=== PATIENT | female | born 2000 | race Caucasian/White ===

== ENCOUNTER 2019-09-30 18:48 | Emergency (ER) | payer MEDICAID ==
--- NOTE | 2019-09-30 22:04 | EDM.PDOC ---
ED HPI GENERAL MEDICAL PROBLEM - General Chief Complaint: HYDROSTATIC TESTER Problem Stated Complaint: 9 WEEKS AND HEAVY BLEEDING Time Seen by Provider: 09/30/19 19:40 Source of Information: Reports: Patient History Limitations: Reports: No Limitations - History of Present Illness INITIAL COMMENTS - FREE TEXT/NARRATIVE: 9 weeks , has been bleeding for about one week bleeding initilaly was light now has heavy bleeding Onset: Gradual Onset Date: 09/27/19 Duration: Getting Worse Quality: Reports: Ache, Dull Severity: Moderate Improves with: Reports: None Worsens with: Reports: None Context: Reports: Other (9 weeks bleeding) Associated Symptoms: Reports: No Other Symptoms abd cramping Pain Score (Numeric/FACES): 12 - Related Data Allergies Allergy/AdvReac Type Severity Reaction Status Date / Time No Known Allergies Allergy Verified 09/30/19 19:10 Home Meds: Home Meds NK [No Known Home Meds] 09/30/19 [History] Social & Family History - Tobacco Use Smoking Status *Q: Never Smoker - Caffeine Use Caffeine Use: Reports: None - Recreational Drug Use Recreational Drug Use: No ED ROS GENERAL - Review of Systems Review Of Systems: Comprehensive ROS is negative, except as noted in HPI. ED EXAM - Physical Exam Exam: See Below Exam Limited By: No Limitations General Appearance: Alert, WD/WN, No Apparent Distress GI/Abdominal Exam: Soft, Tender (in the suprapubic regin ) (Female) Exam: Cervical Dilatation, Enlarged Uterus, Tissue Present in Cervix /Vagina, Vaginal Bleeding, Other (with sspeculum exam , large amount of clots was removed from the cervix with products of conception) Heart Tones: Not [place] Course - Vital Signs Last Recorded V/S: Last Vital Signs Temp 36.6 C 09/30/19 18:55 Pulse 100 09/30/19 21:30 Resp 20 09/30/19 21:30 BP 118/92 H 09/30/19 21:30 Pulse Ox 100 09/30/19 21:30 - Orders/Labs/Meds Labs: Laboratory Tests 09/30/19 Range/Units 19:25 WBC 10.7 (4.5-12.0) X10-3/uL RBC 4.60 (3.23-5.20) x10(6)uL Hgb 14.4 (11.5-15.5) g/dL Hct 41.3 (30.0-51.3) % MCV 89.6 (80-96) fL MCH 31.3 (27.7-33.6) pg MCHC 35.0 (32.2-35.4) g/dL RDW 12.0 (11.5-15.5) % Plt Count 243 (125-369) X10(3)uL MPV 8.8 (7.4-10.4) fL Neut % (Auto) 71.5 (46-82) % Lymph % (Auto) 21.0 (13-37) % [place] % (Auto) 5.7 (4-12) % Eos % (Auto) 1 (1.0-5.0) % Baso % (Auto) 1 (0-2) % Neut # (Auto) 7.6 (1.6-8.3) # Lymph # (Auto) 2.3 (0.6-5.0) # [place] # (Auto) 0.6 (0.0-1.3) # Eos # (Auto) 0.1 (0.0-0.8) # Baso # (Auto) 0.1 (0.0-0.2) # - Re-Assessments/Exams Free Text/Narrative Re-Assessment/Exam: 09/30/19 22:02 discussed with patient Ultrasound done after pelvic exam showed complete no longer has cramps bleeding is like heavy menses currently pt is more comfortable Will see RASHMI/DISTRIBUTION ACCOUNTING CLERK in am and discuss different options for birthcontrol 10/02/19 19:07 Departure - Departure Time of Disposition: 21:30 Disposition: Home, Self-Care 01 Condition: Fair Clinical Impression: Completed inevitable - Discharge Information *PRESCRIPTION DRUG MONITORING PROGRAM REVIEWED*: Not Applicable *COPY OF PRESCRIPTION DRUG MONITORING REPORT IN PATIENT ZAIRE: Not Applicable Instructions: Miscarriage, [id number] Referrals: Efe Huggins MD [Primary Care Provider] - Forms: ED Department Discharge Additional Instructions: Make appointment to see DISTRIBUTION ACCOUNTING CLERK in am for recheck Sepsis Event Note - Evaluation Sepsis Screening Result: No Definite Risk - Focused Exam Date Exam was Performed: 10/02/19 Time Exam was Performed: 19:08
--- NOTE | 2019-10-01 11:27 | US ---
INDICATION: Complete , question retained products of conception/need better visualization of the endometrial cavity than was possible with the transabdominal probe. ULTRASOUND PELVIS NON-OB LIMITED, TRANSVAGINAL NON-OB ULTRASOUND: Initial utilizing transabdominal probe with 2D, real-time and color flow imaging, and then transvaginal probe for better visualization of the endometrial cavity, multiple ultrasonic images were obtained 09/30/19 - no comparisons. The uterus measured 9.2 x 3.5 x 1.4 cm. Endometrial cavity echo was 18 mm. Right ovary volume was 3.76 mL with measurements of 1.9 x 1.8 x 2.1 cm. Left ovary volume was 15.55 mL with measurements of 3.6 x 2.5 x 3.3 cm. There is a 2.2 cm probable follicular cyst at the left ovary. The right ovary was unremarkable. There is no definite mass in the endometrium or myometrium. However, there is echogenic material within the endometrial cavity which may represent blood clots. The possibility of retained products of conception is difficult to entirely exclude with this appearance, and a followup study is recommended in 2- 4 weeks, depending upon clinical course. No color flow images of the endometrial cavity were obtained. IMPRESSION: Prominent endometrial cavity with echogenic material within it. The possibility of retained products of conception is difficult to entirely exclude. Followup study is recommended in 2-4 weeks, or immediately, depending upon clinical correlation. Report was called to Dr. Knox at 10:30 hours. [facility]
== END 2019-09-30 22:15 | disposition home or self-care (01) ==
LOC: FB.ED 18:48
DX: O03.9 Complete or unspecified spontaneous abortion without complication (principal)
CPT/HCPCS: 36415; 76830; 76857; 85025; 99284-25